=== PATIENT | female | born 1990 | race Caucasian/White ===

== ENCOUNTER 2016-10-22 09:13 | Day surgery (SDC) | payer BC ==
--- NOTE | ~2016-10-22 | OP ---
Record Of Operation [facility] [address] [facility] [id number] NAME: REGGIE GAUTHIER : 89 STATUS : REG [facility]#: [id number] AGE: 26 ADM/REG DATE : 10/22/16 MR#: [id number] REPORT SERV DATE: 10/22/16 DICTATED BY: LANDEN MONTANO DATE: 10/22/16 REPORT STATUS : Draft TRANSCRIBED BY: MODL DATE: 10/22/16 DATE OF PROCEDURE: 10/22/2016 PREOPERATIVE DIAGNOSIS: Hypertrophic/keloid scar of the anterior neck, 5 cm. POSTOPERATIVE DIAGNOSIS: Hypertrophic/keloid scar of the anterior neck, 5 cm. PROCEDURE: Complex closure of neck wound, 5 cm. SURGEON: Landen Montano M.D. ANESTHESIA: General. COMPLICATIONS: None. COUNTS: All counts were correct following the procedure. ESTIMATED BLOOD LOSS: Minimal. PREOPERATIVE INFORMED CONSENT: We discussed the risks and benefits of the surgery including, but not limited to bleeding, infection, possible recurrence of her scarring. She understands the risks and benefits of surgery, and consent is on the chart. DESCRIPTION OF PROCEDURE: The patient was brought to the operative suite, place on the operating room table in supine position. General anesthesia was initiated without incident. The patient's neck was cleaned, prepped and draped in usual sterile fashion. Following this, the neck wound was marked out and injected with approximately 5 mL of 1% lidocaine and 1:100,000 epinephrine for hemostasis. Following this, a 15 blade scalpel was used to perform elliptical excision around the lesion in question, and then the wound was closed in layers using 4-0 PDS and 4-0 Prolene subcuticular closure followed by benzoin, and Steri- Strips. CAROLEE/RJANI Landen Montano M.D. / [id number] CC: Evelyn Frost
[~2016-10-22 09:13] MED LIST: ADDERALL15 MG PO; CYTO25; DURICEF PO; IRON SUPPLEMENT PO; MICROGESTI2 PO; NORCO1 TA1 PO; SYN1 PO; VYVANSE30 MG PO; ZOFRAN ODT4 MG PO; [UNRECOGNIZED DRUG - OTHER]
== END 2016-10-22 23:59 | disposition home or self-care (01) ==
LOC: MSC 09:13
PROVIDERS: Otolaryngology
PROC: 0WQ60ZZ Repair Neck, Open Approach (ICD-10-PCS; principal; 2016-10-22 11:15)
DX: L91.0 Hypertrophic scar (principal); F41.9 Anxiety disorder, unspecified; R00.2 Palpitations; Z90.89 Acquired absence of other organs
CPT/HCPCS: 84703; A9270-GY; J0690; J2250; J2405; J3010